=== PATIENT | female | born 1965 | race Caucasian/White ===

== ENCOUNTER 2020-10-23 10:16 | Inpatient (IN) | payer BC, MEDICAID, OTHER ==
[~2020-10-23] VITALS: Ht 162.6 cm; Wt 95.4 kg
[~2020-10-23 10:16] MED LIST: ACYC800T5; NPH
[2020-10-23] MEDS ORDERED: DEXTROSE 50% WATER 50ML SYRINGE IV ONE ×2 (10:30→12:00)
[2020-10-23 11:09] LABS: BASOPHILS % 0.3 % (0.0-2.0); EOSINOPHILS % 0.7 % (0.0-5.0); HEMATOCRIT. 31.8 % (36.0-48.0); HEMOGLOBIN. 10.4 g/dL (12.0-16.0); LYMPHOCYTES % 12.6 % (20.0-50.0); MEAN CORPUSCULAR HEMOGLOBIN 33.7 pg (28.0-32.0); MEAN CORPUSCULAR VOLUME 102.8 fL (81.0-99.0); MEAN PLATELET VOLUME 7.9 fl (7.4-10.4); MONOCYTES % 8.1 % (2.0-8.0); NEUTROPHILS % 78.3 % (40.0-76.0); PLATELET 205 x1000/uL (130-400); RED CELL DISTRIBUTION WIDTH 16.7 % (11.6-14.6)
[2020-10-23 11:16] LABS: CHLORIDE 100 mEq/L (98-107)
[2020-10-23 11:21] LABS: ETHANOL BLOOD < 10 mg/dL
[2020-10-23] MEDS ORDERED: DEXTROSE 10% WATER 500 ML IV ONE (12:00)
[2020-10-23] MEDS ORDERED: DEXTROSE 10% WATER 500 ML IV SCH (12:15)
[2020-10-23] MEDS ORDERED: LORAZEPAM 0.5MG TABLET PO PRN (14:30)
[2020-10-23] MEDS ORDERED: DOCUSATE SODIUM 100MG CAPSULE PO PRN (14:30)
[2020-10-23] MEDS ORDERED: IPRATROPIUM/ALBUTEROL 0.5-3(2.5)MG/3ML NEB HHN PRN (14:30)
[2020-10-23] MEDS ORDERED: HYDROCODONE/ACETAMINOPHEN 5/325MG TABLET PO PRN (14:30)
[2020-10-23] MEDS ORDERED: CLONIDINE 0.1MG TABLET PO PRN (14:30)
[2020-10-23] MEDS ORDERED: ONDANSETRON HCL 4MG/2ML INJ IV PRN (14:30)
[2020-10-23] MEDS ORDERED: ACETAMINOPHEN 325MG TABLET PO PRN (14:30)
[2020-10-23 15:57] VITALS: BP 133/35
[2020-10-23] MEDS ORDERED: SODIUM CHLORIDE 23.4% 154 MEQ in DEXT 10% WATER 1,000 ML IV SCH (16:00)
[2020-10-23 16:23] VITALS: BP 136/96
[2020-10-23] MEDS ORDERED: ASPI-1406 PO (16:38)
[2020-10-23] MEDS ORDERED: GABA-290 PO (16:39)
[2020-10-23] MEDS ORDERED: CARV3.1242 PO (16:39)
[2020-10-23] MEDS ORDERED: SEVE800T8 PO (16:40)
[2020-10-23 16:47] LABS: HEPATITIS B SURFACE ANTIGEN NEGATIVE
[2020-10-23 17:16] LABS: HEPATITIS A AB IGM NEGATIVE (NEGATIVE)
[2020-10-23] MEDS: BLOOD SUGAR DIAGNOSTIC STRIP TEST SCH ×3 (17:54→23:53)
[2020-10-23 18:00] VITALS: BP 129/62
[2020-10-23] MEDS ORDERED: DEXTROSE 50% WATER 50ML SYRINGE IV PRN (18:00)
[2020-10-23] MEDS: SEVELAMER CARBONATE 800 MG TABLET PO SCH (18:04)
[2020-10-23] MEDS: GABAPENTIN 300MG CAPSULE PO SCH (18:05)
[2020-10-23 20:00] VITALS: BP 135/76
[2020-10-23 22:00] VITALS: BP 156/76
[2020-10-24] VITALS (11 sets, daily range): BP systolic 104–166; BP diastolic 48–75
[2020-10-24] MEDS: ACETAMINOPHEN 325MG TABLET PO PRN ×2 (00:37→11:53)
[2020-10-24] MEDS: BLOOD SUGAR DIAGNOSTIC STRIP TEST SCH ×6 (03:14→18:32)
[2020-10-24 07:11] LABS: BASOPHILS % 0.3 % (0.0-2.0); EOSINOPHILS % 1.1 % (0.0-5.0); HEMATOCRIT. 33.2 % (36.0-48.0); HEMOGLOBIN. 10.9 g/dL (12.0-16.0); LYMPHOCYTES % 13.2 % (20.0-50.0); MEAN CORPUSCULAR HEMOGLOBIN 33.5 pg (28.0-32.0); MEAN CORPUSCULAR VOLUME 102.2 fL (81.0-99.0); MEAN PLATELET VOLUME 8.4 fl (7.4-10.4); MONOCYTES % 14.7 % (2.0-8.0); NEUTROPHILS % 70.7 % (40.0-76.0); PLATELET 190 x1000/uL (130-400); RED BLOOD CELL COUNT 3.25 mill/uL (4.2-5.4); RED CELL DISTRIBUTION WIDTH 17.2 % (11.6-14.6)
[2020-10-24] MEDS: SEVELAMER CARBONATE 800 MG TABLET PO SCH ×2 (08:08→13:35)
[2020-10-24] MEDS: GABAPENTIN 300MG CAPSULE PO SCH ×2 (08:08→13:35)
[2020-10-24] MEDS ORDERED: MEDICATION NOT ON FORMULARY EA (Gabapentin 600 MG) PO SCH (09:00)
[2020-10-24] MEDS ORDERED: ASPIRIN 81MG EC TABLET PO SCH (09:00)
[2020-10-24] MEDS ORDERED: INSU100I28 SQ (10:24)
[2020-10-24] MEDS ORDERED: INSU100V3 SUBCUT (10:24)
[2020-10-24 16:04] LABS: HEPATITIS B SURFACE ANTIGEN NEGATIVE
[2020-10-24 16:33] LABS: HEPATITIS A AB IGM NEGATIVE (NEGATIVE)
== END 2020-10-24 19:18 | disposition home or self-care (01) | DRG 420 ==
LOC: ER 10:16 → 3WST 13:18 → EDBEDREQTM 13:21 → EDBEDREQ 13:21 → EDBEDREQSVC 14:36 → ENRESERV 14:51
PROVIDERS: ADMIT Internal Medicine; ATTEND Internal Medicine
PROC: 5A1D70Z Performance of Urinary Filtration, Intermittent, Less than 6 Hours Per Day (ICD-10-PCS; principal; 2020-10-23)
PROC: 5A1D70Z Performance of Urinary Filtration, Intermittent, Less than 6 Hours Per Day (ICD-10-PCS; 2020-10-24)
DX: E11.649 Type 2 diabetes mellitus with hypoglycemia without coma (principal); J96.00 Acute respiratory failure, unspecified whether with hypoxia or hypercapnia; I13.2 Hypertensive heart and chronic kidney disease with heart failure and with stage 5 chronic kidney disease, or end stage renal disease; G93.41 Metabolic encephalopathy; N18.6 End stage renal disease; E11.22 Type 2 diabetes mellitus with diabetic chronic kidney disease; I25.10 Atherosclerotic heart disease of native coronary artery without angina pectoris; J44.9 Chronic obstructive pulmonary disease, unspecified; D53.9 Nutritional anemia, unspecified; D72.821 Monocytosis (symptomatic); I50.33 Acute on chronic diastolic (congestive) heart failure; Z99.2 Dependence on renal dialysis; Z88.5 Allergy status to narcotic agent; Z79.899 Other long term (current) drug therapy; Z79.82 Long term (current) use of aspirin; Z83.3 Family history of diabetes mellitus; Z86.16 Personal history of COVID-19; Z79.4 Long term (current) use of insulin
CPT/HCPCS: 36415; 71045; 80048; 80053; 80320; 82533; 82962; 83036; 84295; 85025; 86705; 86709; 86803; 87340; 99291; J7131; G0480